=== PATIENT | female | born 1930 | race Caucasian/White ===

== ENCOUNTER 2017-08-28 16:57 | Emergency (ER) | payer MEDICARE, MEDICAID ==
[~2017-08-28] VITALS: Wt 61.2 kg
[~2017-08-28 16:57] MED LIST: AMOXICILLIN500 M2 PO; CALCIUM + VITA1 EAC2 PO; LISINOPRIL-HYDR1 TA1 PO; LUMIGAN50 DRP OPH
[2017-08-28 19:51] LABS: BILIRUBIN NEGATIVE (NEGATIVE); BLOOD NEGATIVE (NEGATIVE); CLARITY SL CLOUDY (CLEAR); COLOR YELLOW (YELLOW); GLUCOSE NEGATIVE (NEGATIVE); KETONE NEGATIVE (NEGATIVE); LEUKO ESTERASE 2+ (NEGATIVE); NITRITE NEGATIVE (NEGATIVE); PH 5.5 (5.0-9.0); UROBILINOGEN 0.2 E.U./dl (0.2-1.0)
[2017-08-28 19:53] LABS: BASO % 0.2 % (0.0-1.0); EOS % 0.1 % (1.0-4.0); HEMOGLOBIN 14.6 g/dl (12.0-16.0); LYMPH # 1.4 10*3/uL (1.3-4.4); LYMPH % 7.1 % (27.0-41.0); MEAN CELL VOLUME 92.3 fl (81.0-99.0); MEAN CORPUSCULAR HGB 31.3 pg (27.0-31.0); MEAN PLATELET VOLUME 9.9 fl (9.6-12.3); MONO # 0.8 10*3/uL (0.1-1.0); MONO % 3.8 % (3.0-9.0); NEUT # 17.5 10*3/uL (2.3-7.9); NEUT % 88.1 % (47.0-73.0); PLATELET COUNT AUTOMATED 244 10*3/uL (130-400); RED BLOOD COUNT 4.66 10*6/uL (4.10-5.10); RED CELL DISTRI WIDTH 12.7 % (0-14.5); WHITE BLOOD COUNT 19.9 10*3/uL (4.8-10.8)
[2017-08-28 19:55] VITALS: BP 146/71
[2017-08-28 19:59] LABS: BACTERIA 2+
[2017-08-28 20:00] LABS: WBC 41-50 wbc/hpf (0-5)
[2017-08-28 20:02] LABS: ACT PARTIAL THROMBO TIME 25.5 SECONDS (20.8-31.5); INTERNATIONAL NORM RATIO 0.9 (2.0-3.5)
[2017-08-28 20:09] LABS: ALBUMIN 4.1 gm/dl (3.1-4.5); ALKALINE PHOSPHATASE 59 U/L (45-117); BUN 21 mg/dl (7-24); CHLORIDE 102 mmol/L (98-107); CREATININE 0.97 mg/dL (0.55-1.02); POTASSIUM 3.3 mmol/L (3.5-5.1); SGOT/AST 21 IU/L (3-35); SGPT/ALT 22 U/L (12-78); SODIUM 137 mmol/L (136-145); TOTAL PROTEIN 7.3 gm/dL (6.4-8.2)
[2017-08-28 20:10] LABS: TROPONIN I < 0.015 ng/ml (<0.045)
== END 2017-08-28 20:25 | disposition short-term general hospital (02) ==
LOC: ED 16:57
PROVIDERS: Nurse Practitioner Family
DX: S06.6X0A Traumatic subarachnoid hemorrhage without loss of consciousness, initial encounter (principal); S72.092A Other fracture of head and neck of left femur, initial encounter for closed fracture; R94.31 Abnormal electrocardiogram [ECG] [EKG]; Z98.42 Cataract extraction status, left eye; Z98.41 Cataract extraction status, right eye; Z79.899 Other long term (current) drug therapy; W10.8XXA Fall (on) (from) other stairs and steps, initial encounter; Y93.89 Activity, other specified; Y92.009 Unspecified place in unspecified non-institutional (private) residence as the place of occurrence of the external cause; Y99.9 Unspecified external cause status

== ENCOUNTER 2018-07-06 18:06 | Inpatient (IN) | payer MEDICARE, MEDICAID ==
[~2018-07-06] VITALS: Ht 162.5 cm; Wt 61.9 kg
--- NOTE | ~2018-07-06 | EKG ---
[place], [place] ELECTROCARDIOGRAM REPORT NAME: PRABHJOT ZHANG UNIT #: [id number] ROOM: 407 DOCTOR: SEFERINO DRAFT REPORT BIRTHDATE: [birth year] [facility] Test Date: 2018-07-07 Test Time: 14:41:04 Pat Name: PRABHJOT ZHANG Department: Room: 407 1 Gender: F Assistant Professor Of Chemistry: : 1930 Requested By: JORDI WOODRUFF Order Number: [id number] Reading MD: Rojelio Guillen MD Measurements Intervals [place] Rate: 72 P: 49 PA: 127 QRS: 29 QRSD: 89 T: 106 QT: 425 QTc: 466 Interpretive Statements Sinus rhythm Nonspecific repol abnormality, diffuse leads Baseline wander in lead(s) V1 No previous ECG available for comparison Electronically Signed On 07-07-2018 17:48:38 PST by Rojelio Guillen MD CM:EKGRPT:ELECTROCARDIOGRAM REPORT [id number] JORDI GENTILE DRAFT REPORT JORDI WOODRUFF
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
[2018-07-06 18:11] VITALS: BP 166/64
[2018-07-06 20:00] VITALS: BP 158/91
--- NOTE | 2018-07-06 20:15 | NUR ---
PATIENT USED BEDPAN AT THIS TIME. REPOSITIONED PATIENT IN BED. FAMILY AT THE BEDSIDE. UA SENT. NO DISTRESS NOTED. RESPIRATIONS EASY, NON-LABORED ON ROOM AIR. CALL LIGHT WITHIN REACH. KRISHNA X2. RN WILL CONTINUE TO MONITOR.
[2018-07-06 20:31] LABS: BILIRUBIN NEGATIVE (NEGATIVE); BLOOD TRACE-LYSED (NEGATIVE); CLARITY SL CLOUDY (CLEAR); COLOR YELLOW (YELLOW); GLUCOSE NEGATIVE (NEGATIVE); KETONE NEGATIVE (NEGATIVE); LEUKO ESTERASE 2+ (NEGATIVE); NITRITE NEGATIVE (NEGATIVE); SPECIFIC GRAVITY <= 1.005 (1.005-1.030); UROBILINOGEN 0.2 E.U./dl (0.2-1.0)
[2018-07-06 20:46] LABS: BACTERIA 1+; EPITHELIAL CELLS TNTC
[2018-07-06 21:17] LABS: BASO % 0.2 % (0.0-1.0); EOS % 0.2 % (1.0-4.0); HEMATOCRIT 42.6 % (37.0-47.0); HEMOGLOBIN 14.7 g/dl (12.0-16.0); LYMPH # 1.6 10*3/uL (1.3-4.4); MEAN CELL VOLUME 93.6 fl (81.0-99.0); MEAN CORPUSCULAR HGB 32.3 pg (27.0-31.0); MEAN CORPUSCULAR HGB CONC 34.5 g/dl (33.0-37.0); MONO # 0.8 10*3/uL (0.1-1.0); MONO % 4.9 % (3.0-9.0); NEUT # 13.6 10*3/uL (2.3-7.9); PLATELET COUNT AUTOMATED 258 10*3/uL (130-400); RED BLOOD COUNT 4.55 10*6/uL (4.10-5.10); WHITE BLOOD COUNT 16.2 10*3/uL (4.8-10.8)
[2018-07-06 21:32] LABS: ALKALINE PHOSPHATASE 57 U/L (45-117); BUN 24 mg/dl (7-24); CHLORIDE 106 mmol/L (98-107); CREATININE 1.09 mg/dL (0.55-1.02); LIPASE 132 U/L (73-393); POTASSIUM 3.6 mmol/L (3.5-5.1); SGOT/AST 17 IU/L (3-35); SGPT/ALT 19 U/L (12-78); SODIUM 141 mmol/L (136-145); TOTAL PROTEIN 6.6 gm/dL (6.4-8.2)
[2018-07-06 21:39] LABS: ACT PARTIAL THROMBO TIME 26.1 SECONDS (20.8-31.5)
[2018-07-06 22:00] VITALS: BP 170/85
--- NOTE | 2018-07-06 22:00 | NUR ---
PATIENT USED BEDPAN AT THIS TIME. REPOSITIONED PATIENT FOR COMFORT. RESPIRATIONS EASY, NON-LABORED ON ROOM AIR. DNEIES ANY PAIN EXCEPT FOR WHEN WE MOVE HER TO PUT HER ON THE BEDPAN. RN WILL CONTINUE TO MONITOR.
[2018-07-06 22:30] VITALS: BP 135/64
[2018-07-07] VITALS (10 sets, daily range): BP systolic 105–145; BP diastolic 58–90
--- NOTE | 2018-07-07 00:15 | NUR ---
Time: 14 A 87 year old FEMALE admitted to 4E under services of BJ RON DO. Pt. arrived via ambulance from ER. Chief complaint: FALL. ANAMARIA SPIVEY
--- NOTE | 2018-07-07 04:54 | NUR ---
PT ADMINISTERED PRN NORCO. WILL CONTINUE TO MONITOR.
--- NOTE | 2018-07-07 05:00 | NUR ---
Dr. ALEXANDER consulted for RIGHT FEMUR NECK CLOSED FX. ANAMARIA SPIVEY
[2018-07-07 05:56] LABS: BASO % 0.4 % (0.0-1.0); EOS # 0.2 10*3/uL (0.0-0.4); EOS % 1.9 % (1.0-4.0); HEMATOCRIT 39.4 % (37.0-47.0); HEMOGLOBIN 13.3 g/dl (12.0-16.0); LYMPH # 1.6 10*3/uL (1.3-4.4); LYMPH % 20.6 % (27.0-41.0); MEAN CELL VOLUME 95.2 fl (81.0-99.0); MEAN CORPUSCULAR HGB 32.1 pg (27.0-31.0); MEAN CORPUSCULAR HGB CONC 33.8 g/dl (33.0-37.0); MONO # 0.6 10*3/uL (0.1-1.0); MONO % 7.9 % (3.0-9.0); NEUT # 5.5 10*3/uL (2.3-7.9); NEUT % 68.7 % (47.0-73.0); PLATELET COUNT AUTOMATED 227 10*3/uL (130-400); RED BLOOD COUNT 4.14 10*6/uL (4.10-5.10)
--- NOTE | 2018-07-07 06:00 | NUR ---
PT STATES THAT PRN NORCO WAS EFFECTIVE. BED LOW, CALL LIGHT WITHIN REACH.
--- NOTE | 2018-07-07 06:08 | NUR ---
PT LEAVING FLOOR AT THIS TIME TO GO TO RADIOLOGY FOR LUNG SCAN.
[2018-07-07 06:14] LABS: ALBUMIN 3.4 gm/dl (3.1-4.5); ALKALINE PHOSPHATASE 45 U/L (45-117); BUN 20 mg/dl (7-24); CHLORIDE 107 mmol/L (98-107); CHOLESTEROL 183 mg/dL (<200); CREATININE 0.95 mg/dL (0.55-1.02); FREE T4 0.91 ng/dl (0.76-1.46); HDL CHOLESTEROL 55 mg/dl (40-60); LDL CHOLESTEROL 112 mg/dL (9-159); PHOSPHOROUS 3.3 mg/dL (2.5-4.9); POTASSIUM 3.5 mmol/L (3.5-5.1); SGOT/AST 15 IU/L (3-35); SGPT/ALT 17 U/L (12-78); SODIUM 143 mmol/L (136-145); TOTAL PROTEIN 5.9 gm/dL (6.4-8.2); TRIGLYCERIDES 79 mg/dl (<150); VLDL CHOLESTEROL 16 mg/dL (6-40)
--- NOTE | 2018-07-07 07:00 | NUR ---
THIS NURSE AND LULÚ BOYER RN TRANSPORTED PT BACK TO FLOOR AT THIS TIME.
--- NOTE | 2018-07-07 09:00 | NUR ---
Lawn And Garden Technician in to talk to patient. Patient states lives at home with alone. There are few steps in the home. Physician: michi Pharmacy: [facility] services: none Patient's level of ADLs: INDEPENDENT Patient has working utilities: all working DME: none Follow-up physician's appointment after d/c: will be made by hospitalist nurse director upon discharge Does patient want to access PORTAL?: no Discharge plan discussed with patient, patient lives at home, states she was independent in adls and ambulation prior to falling, discussed with her a short term prison for rehab prior to going back home, patient was inagreement with this, given choice of area facilities, patient chose [facility] as first choice and [facility] as second choice, senior materials planner will make referral to both facilities for when patient is medically stable for discharge. YIN FINE
--- NOTE | 2018-07-07 11:42 | NUR ---
PATIENT C/O RIGHT HIP PAIN, MEDICATED WITH PRN IV DILAUDID PER ORDERS. WILL MONITOR PATIENT FOR MEDICATION EFFECTIVENESS. BED IN LOWEST/LOCKED POSITION, SIDERAILS UP X2 FOR SAFETY, CALL LIGHT WITHIN REACH. DAUGHTER AT BEDSIDE WTIH PATIENT AT THIS TIME.
--- NOTE | 2018-07-07 12:38 | NUR ---
NOTIFIED DR ALEXANDER'S OFFICE AT THIS TIME TO MAKE AWARE THAT PATIENT WAS CLEARED FOR SURGERY PER DR MILLER/DR JURADO.
--- NOTE | 2018-07-07 14:09 | NUR ---
Patient requested referral to 1. [facility] and 2. [facility]. Contacted facility and faxed referral to [facility]. Andrew stated they do have open beds at [facility] for female, but no openings for Rehab suites. Initial referral was faxed, will fax physical therapy eval after patient has surgery and is appropriate to participate.
--- NOTE | 2018-07-07 15:25 | NUR ---
PATIENT TO OR FOR ORIF RT HIP BY BED AT THIS TIME, FAMILY ACCOMPANYING.
--- NOTE | 2018-07-07 19:34 | NUR ---
patient returned from surgery at this time.
--- NOTE | 2018-07-07 20:02 | NUR ---
SCDS AND HEEL PROTECTORS PLACED ON PATIENT AT THIS TIME
--- NOTE | 2018-07-07 21:57 | NUR ---
PATIENT MEDICATED WITH PRN NORCO ORDERD FOR C/O RIGHT HIP PAIN WITH MOVEMENT RATED A 8/10
--- NOTE | 2018-07-07 23:00 | NUR ---
PATIENT STATES EARLIER NORCO WAS EFFECTIVE FOR RIGHT HIP PAIN.
[2018-07-08] VITALS: BP 144/70
--- NOTE | 2018-07-08 01:30 | NUR ---
PATIENT MEDICATED WITH PRN NORCO ORDERD FOR C/O RIGHT HIP PAIN RATED 6/10, WORSE WITH MOVEMENT.
--- NOTE | 2018-07-08 02:30 | NUR ---
EARLIER NORCO EFFECTIVE PER PATIENT.
[2018-07-08 05:59] LABS: BASO % 0.3 % (0.0-1.0); EOS # 0.4 10*3/uL (0.0-0.4); EOS % 3.9 % (1.0-4.0); HEMATOCRIT 36.9 % (37.0-47.0); HEMOGLOBIN 12.2 g/dl (12.0-16.0); LYMPH # 2.1 10*3/uL (1.3-4.4); LYMPH % 22.3 % (27.0-41.0); MEAN CELL VOLUME 96.3 fl (81.0-99.0); MEAN CORPUSCULAR HGB 31.9 pg (27.0-31.0); MEAN CORPUSCULAR HGB CONC 33.1 g/dl (33.0-37.0); MEAN PLATELET VOLUME 10.3 fl (9.6-12.3); MONO # 0.8 10*3/uL (0.1-1.0); MONO % 8.1 % (3.0-9.0); NEUT % 65.1 % (47.0-73.0); PLATELET COUNT AUTOMATED 198 10*3/uL (130-400); RED BLOOD COUNT 3.83 10*6/uL (4.10-5.10); RED CELL DISTRI WIDTH 13.1 % (0-14.5); WHITE BLOOD COUNT 9.2 10*3/uL (4.8-10.8)
[2018-07-08 08:00] VITALS: BP 110/64
--- NOTE | 2018-07-08 09:00 | NUR ---
patient will be going to a short term senior care when medically stable, urban planner working on this
--- NOTE | 2018-07-08 10:15 | NUR ---
MEDICATED WITH NORCO ORDERED FOR COMPLAINTS OF RIGHT HIP PAIN. RATES PAIN A 8 ON A PAIN SCALE OF 1-10
--- NOTE | 2018-07-08 11:00 | NUR ---
VOICES THAT VICODIN WAS EFFECTIVE FOR PAIN
--- NOTE | 2018-07-08 11:58 | NUR ---
Occupational Therapy evaluation completed on 4 with full eval to follow. Precautions include fall risk; bed alarm, TTWB RLE, park catheter, IV UE. Patient is high complexity level 53356 via chart review, testing and evaluation. Recommend OT per POC and SNF to enable safe return home at [facility]. Thank you for this referral. Fabi Armas OTR/l
[2018-07-08 12:00] VITALS: BP 117/56
--- NOTE | 2018-07-08 14:48 | NUR ---
MEDICATED WITH NORCO FOR COMPLAINTS OF PAIN IN RIGHT LEG. REMAINS IN CHAIR. RATES PAIN A 8 ON A PAIN SCLAE OF 1-10
--- NOTE | 2018-07-08 15:05 | NUR ---
Physical therapy evaluation completed on 4. Pt ID by name and . Pt is TTWB RLE. Full PT eval to follow. Recommend pt to SNF for safety with progression of functional mobility. Moderate complexity PT evaluation completed. thank you for this referral, Rocio Jacobo, PT
--- NOTE | 2018-07-08 15:10 | NUR ---
PHYSICAL THERAPY Patient presented to therapy in sitting position with chair alarm attached and LEs elevated with report of no pain , except when she moves. Patient agrees to therapy session. Patient was identified by name and . Patient is TTWB on R LE. Patient transferred STS with MOD A X 1 from bedside chair with verbal cues for scooting forwards in chair and pushing off armrests of chair with hands. Patient stood at W/W for 1 minute maintaining TTWB on the R LE and CGA X 1. Patient then ambulated forwards 5' x 1 with CGA X 1 , with rolling chair then pulled up behind her where she sat with MIN A X 1. Patient STS again from bedside chair with MIN A X 1. Patient stood at W/W with CGA X 1 for 1 minutes for the 2 nd time with verbal cues for maintaining TTWB.
--- NOTE | 2018-07-08 15:16 | NUR ---
ASSUMED CARE OF PATIENT AT THIS TIME. PATIENT RESTING WHILE SITTING UP IN CHAIR. RESPIRATIONS EASY. NO S/S OF DISTRESS NOTED. WILL CONTINUE TO MONITOR. CALL LIGHT LEFT IN REACH.
--- NOTE | 2018-07-08 15:56 | NUR ---
PATIENT ASSISTED OUT OF CHAIR BACK INTO BED BY DIRECTOR DIGITAL ADVERTISING USING WALKER AND TOUCH TOE TECHNIQUE. PATIENT TOLERATED WELL. SCDs AND HEEL PROTECTORS REAPPLIED AT THIS TIME. PATIENT C/O FEELING LIKE NINA LEAKING. NINA IS STILL DRAINING CLEAR/PALE YELLOW URINE. RN INSPECTED NINA AND TUBING SYSTEM. NO OBVIOUS LEAKS NOTED. WILL CONTINUE TO MONITOR. CALL LIGHT LEFT IN REACH.
[2018-07-08 16:00] VITALS: BP 103/56
[2018-07-08 20:00] VITALS: BP 109/74
--- NOTE | 2018-07-08 20:21 | NUR ---
PATIENT DENIES ANY NEED FOR PAIN MEDICATION AT THIS TIME. FAMILY AT BEDSIDE. WILL MONITOR. CALL LIGHT IN REACH.
--- NOTE | 2018-07-08 23:51 | NUR ---
ASSUME CARE OF PATIENT. MEDICATED WITH PRN NORCO ORDERED FOR C/O RIGHT HIP PAIN WITH MOVEMENT RATED 8/10. RIGHT HIP DRESSING DRY/INTACT. NINA PATENT CLEAR YELLOW URINE. PATIENT IS PLEASANT/COOPERATIVE WITH CARE. STATES SHE CAN NOT SLEEP WITH THE SCDS AND HEEL BOOTS ON HER LEGS. SCDS REMOVED, AND HEELS PROPPED UP ON BLANKET PER PATIENT REQUEST. NO FURTHER COMPLAINTS. CALL LIGHT IN REACH. WILL MONITOR.
[2018-07-09] VITALS: BP 101/68
--- NOTE | 2018-07-09 02:34 | NUR ---
PATIENT SLEEPING. NO S/S OF DISTRESS NOTED. RESPIRATIONS EASY/REG ON RA. BED IN LOW POSITION, WHEELS LOCKED, CALL LIGHT IN REACH.
--- NOTE | 2018-07-09 06:57 | NUR ---
PATIENT MEDICATED WITH PRN NORCO ORDERD FOR C/O HIP PAIN RATED 10/10
[2018-07-09 07:00] LABS: BASO % 0.4 % (0.0-1.0); EOS # 0.6 10*3/uL (0.0-0.4); EOS % 6.8 % (1.0-4.0); HEMATOCRIT 37.3 % (37.0-47.0); HEMOGLOBIN 12.5 g/dl (12.0-16.0); LYMPH # 2.3 10*3/uL (1.3-4.4); LYMPH % 25.6 % (27.0-41.0); MEAN CELL VOLUME 95.2 fl (81.0-99.0); MEAN CORPUSCULAR HGB 31.9 pg (27.0-31.0); MEAN CORPUSCULAR HGB CONC 33.5 g/dl (33.0-37.0); MEAN PLATELET VOLUME 10.6 fl (9.6-12.3); MONO # 0.7 10*3/uL (0.1-1.0); MONO % 7.9 % (3.0-9.0); NEUT # 5.3 10*3/uL (2.3-7.9); PLATELET COUNT AUTOMATED 201 10*3/uL (130-400); RED BLOOD COUNT 3.92 10*6/uL (4.10-5.10); RED CELL DISTRI WIDTH 13.1 % (0-14.5); WHITE BLOOD COUNT 9.1 10*3/uL (4.8-10.8)
--- NOTE | 2018-07-09 07:55 | NUR ---
Patient accepted to [facility], 3 night stay complete, hospital exemption complete. Patient is ok to go when medically stable for discharge. [facility] notified of possible D/C today if cleared by ortho
[2018-07-09 08:00] VITALS: BP 113/52
--- NOTE | 2018-07-09 08:50 | NUR ---
OT NOTE Pt was seen this A.M. 1:1 for 25 minute OT session. Upon arrival pt was supine in bed, pt identified by name and . Pt had reports of 10/10 R hip pain with activity. Pt transferred supine to sit EOB with modA for assist with both RLE and UB. Pt then completed sit to stand transfer from bed level with Yadira X 2, followed by functional mobility to the recliner with CGA and use of w/w for UE support. Pt required verbal instructions throughout for proper weight bearing status of TTWB. While sitting in recliner provided pt with verbal and visual demonstration/education on use of LB adaptive equipment including: long handle sponge, sock aid, and sales associate cashier due to pt not being able to reach forward due to pain. Pt doffed socks using the sock aid with modA due to not being able to grasp sock. Pt then donned socks using the sock aid with Yadira. Pt's breakfast tray arrived so session was ended at this point, pt was left sitting upright in recliner with call light in hand, tray table in place, and body alarm on for safety. Continue with rec D/C plan to SNF. MARTINA Pearson/Fernando
--- NOTE | 2018-07-09 09:37 | NUR ---
PHYSICAL THERAPY Patient presented to therapy in supine with report of 10/10 pain in R hip with activity. Patient has no other complaints. Patient agrees to therapy session. Patient was identified by name and . Patient has no pain with resting. Patient performed supine to sitting at EOB transfer with MOD A X 1. Patient transferred STS with MIN A X 2 from EOB. Patient ambulated 10' x 1 with W/W to chair across room from patient with CGA X 2 with patient maintaining her R TTWB status the entire distance. Patient sat in bedside chair and performed bilateral LE ther ex 2 x 10 reps LAQs, heel/toe raises, and L hip marches. No other therapy performed at this time. Patient did not appear to be in 10/10 pain with gait or transfers , even though she said her pain level was 10/10. Patient was left in bedside chair with tray table and breakfast in front of patient, call light within reach, and chair alarm activated. Patient was 1:1 with this SALES AND MARKETING ASSISTANT for 20 minutes total. Patient is recommended for SNF UPON DISCHARGE. KINGA SORIANO SALES AND MARKETING ASSISTANT
--- NOTE | 2018-07-09 11:45 | NUR ---
DR ALEXANDER WAS IN TO DO DRESSING CHANGE.
[2018-07-09 12:00] VITALS: BP 136/60
--- NOTE | 2018-07-09 12:16 | NUR ---
NORCO 5/325 GIVEN PER PATIENT REQUEST FOR RIGHT HIP PAIN RATING A 10/10 ON PAINSCALE.
[2018-07-09] MEDS ORDERED: NORCO 5-325 TA1 EACH PO (12:43)
[2018-07-09] MEDS ORDERED: ASPIRIN325 M2 PO (12:43)
[2018-07-09] MEDS ORDERED: VITAMIN D5000 UNI1 PO (12:43)
--- NOTE | 2018-07-09 13:21 | NUR ---
Patient is being discharged to the [facility], transportation scheduled for 3 pm with [place]. [place] and mail forwarding system markup clerk notified.
--- NOTE | 2018-07-09 14:21 | NUR ---
PHYSICAL THERAPY Patient presented to therapy in supine with report of decreasing pain in the R hip. Patient agrees to therapy session. Patient was identified by name and . Patient performed supine to sitting at EOB transfer with MIN A X 1 with verbal cues for proper technique with overhead trapeze. Patient transferred STS with MIN A X 2 with verbal cues for pushing off bed handrail with L hand and off of bed with R hand. Patient ambulated with W/W and TTWB on R LE for 25' x 1 with rolling chair follow by other therapist. Patient required CGA X 1 with ambulation. Patient transferred to bedside chair with MIN A X 1 with verbal cues for putting hands back on armrests and kicking R LE out in front of her. Patient was left in sitting position with call light within reach and tray table near patient. Patient was 1:1 with this INFANTRY WEAPONS CREWMEMBER for 21 minutes total. Patient is recommended to SNF upon discharge. SANJU SORIANO INFANTRY WEAPONS CREWMEMBER
--- NOTE | 2018-07-09 14:38 | NUR ---
OT NOTE PATIENT SEEN 1:1 OT THIS DATE. PATIENT IDENTIFIED BY NAME AND DATE OF . PATIENT SEEN 1:1 OT 20 MINUTES THIS PM. COMPLETED SUPINE TO SIT EOB MIN A WITH USE RAIL AND TRAPEZE BAR INCREASE TIME AND VERBAL CUES TECHNIQUE AND FORM. PATIENT COMPLETED LB DRESSING AND AE EDUCATION DOFF/BLANE SOCKS MIN A AND VERBAL CUES TECHNIQUE. PATIENT PROVIDED WITH PIN DRAFTER OPERATOR, SOCK AIDE, AND LONF HANDLED SPONGE. PATIENT DEMONSTRATED GOOD FOLLOW THROUGH RLE TTWE THIS DATE. PATIENT SEATED IN RECLINER END OF SESSION THIS DATE WITH CHAIR ALARM INTACT AND CALL LIGHT WITHIN REACH. AYAAN CHAVEZ
--- NOTE | 2018-07-09 15:20 | NUR ---
Discharge instructions reviewed with patient/family. Patient receptive and verbalizes understanding. Follow-up care arranged. Written instructions given to patient/family. ES JOHNSON
--- NOTE | 2018-07-09 15:52 | NUR ---
PHYSICAL THERAPY CO-SIGN I approve of the Phyical Therapy notes written above. VINCENT MESSER PT
--- NOTE | 2018-07-12 17:01 | NUR ---
OCCUPATIONAL THERAPY CO-SIGN I approve of the Occupational Therapy notes written above. JOY BOWER OTR/Fernando
== END 2018-07-09 15:20 | disposition other institution (70) | DRG 480 ==
LOC: ED 18:06 → 4E 21:34 → EDHOLD 21:34 → EDBEDREQ 23:45 → 4E 23:52
PROVIDERS: Family Medicine; Nurse Practitioner Family; Orthopaedic Surgery; ADMIT Internal Medicine
PROC: 0QH604Z Insertion of Internal Fixation Device into Right Upper Femur, Open Approach (ICD-10-PCS; principal; 2018-07-07)
DX: S72.001A Fracture of unspecified part of neck of right femur, initial encounter for closed fracture (principal); N17.0 Acute kidney failure with tubular necrosis; R65.10 Systemic inflammatory response syndrome (SIRS) of non-infectious origin without acute organ dysfunction; E83.41 Hypermagnesemia; I10 Essential (primary) hypertension; H40.9 Unspecified glaucoma; M25.552 Pain in left hip; E55.9 Vitamin D deficiency, unspecified; R31.21 Asymptomatic microscopic hematuria; R31.9 Hematuria, unspecified; W18.39XA Other fall on same level, initial encounter; Y93.89 Activity, other specified; Y92.89 Other specified places as the place of occurrence of the external cause; Z83.3 Family history of diabetes mellitus; Z82.49 Family history of ischemic heart disease and other diseases of the circulatory system; Y99.8 Other external cause status

== ENCOUNTER → 2018-08-11 | Outpatient (CLI) | payer MEDICARE, MEDICAID ==
[~2018-08-11] MED LIST changes: +ASPIRIN325 M2 PO; +NORCO 5-325 TA1 EACH PO; +TOPROL XL50 M1 PO; +VITAMIN D5000 UNI1 PO
[2018-08-11 10:34] LABS: BASO % 0.5 % (0.0-1.0); EOS # 0.1 10*3/uL (0.0-0.4); HEMATOCRIT 43.3 % (37.0-47.0); HEMOGLOBIN 14.7 g/dl (12.0-16.0); LYMPH # 1.8 10*3/uL (1.3-4.4); LYMPH % 21.8 % (27.0-41.0); MEAN CELL VOLUME 97.1 fl (81.0-99.0); MEAN CORPUSCULAR HGB CONC 33.9 g/dl (33.0-37.0); MEAN PLATELET VOLUME 10.1 fl (9.6-12.3); MONO # 0.5 10*3/uL (0.1-1.0); MONO % 5.6 % (3.0-9.0); NEUT # 5.7 10*3/uL (2.3-7.9); NEUT % 70.6 % (47.0-73.0); PLATELET COUNT AUTOMATED 272 10*3/uL (130-400); RED BLOOD COUNT 4.46 10*6/uL (4.10-5.10); RED CELL DISTRI WIDTH 13.3 % (0-14.5)
[2018-08-11 10:58] LABS: BUN 13 mg/dl (7-24); CHLORIDE 103 mmol/L (98-107); CREATININE 0.92 mg/dL (0.55-1.02); POTASSIUM 3.7 mmol/L (3.5-5.1); SODIUM 141 mmol/L (136-145)
== END | disposition home or self-care (01) ==
LOC: LAB 01:45 → ORTHO 01:45
PROVIDERS: Orthopaedic Surgery
DX: S72.011D Unspecified intracapsular fracture of right femur, subsequent encounter for closed fracture with routine healing (principal); E87.6 Hypokalemia; D64.9 Anemia, unspecified; X58.XXXD Exposure to other specified factors, subsequent encounter

== ENCOUNTER → 2018-09-13 | Outpatient (CLI) | payer MEDICARE, MEDICAID | END | disposition home or self-care (01) | LOC: ORTHO 00:45 | DX: S72.001D Fracture of unspecified part of neck of right femur, subsequent encounter for closed fracture with routine healing (principal); X58.XXXD Exposure to other specified factors, subsequent encounter; Z91.81 History of falling ==

== ENCOUNTER → 2018-12-15 | Outpatient (CLI) | payer MEDICARE, MEDICAID | END | disposition home or self-care (01) | LOC: ORTHO 00:50 | DX: S72.001D Fracture of unspecified part of neck of right femur, subsequent encounter for closed fracture with routine healing (principal); X58.XXXD Exposure to other specified factors, subsequent encounter ==

== ENCOUNTER → 2018-12-16 | Outpatient (CLI) | payer MEDICARE, MEDICAID ==
--- NOTE | ~2018-12-16 | EKG ---
[place], [place] ELECTROCARDIOGRAM REPORT NAME: PRABHJOT ZHANG UNIT #: [id number] ROOM: DOCTOR: MAURILIOANY DRAFT REPORT BIRTHDATE: [birth year] [facility] Test Date: 2018-12-16 Test Time: 12:56:09 Pat Name: PRABHJOT ZHANG Department: Room: Gender: F Director Of Trauma: KJ : 1930 Requested By: TANA PICKERING Order Number: [id number] Reading MD: Venita Beal Measurements Intervals [place] Rate: 114 P: MO: QRS: 27 QRSD: 84 T: 161 QT: 290 QTc: 400 Interpretive Statements Atrial fibrillation with RVR Nonspecific repol abnormality, diffuse leads Compared to ECG 07/07/2018 14:41:04 Sinus rhythm no longer present Electronically Signed On 12-17-2018 8:32:18 PDT by Venita Beal CM:EKGRPT:ELECTROCARDIOGRAM REPORT [id number] TANA GENTILE DRAFT REPORT TANA PICKERING MD
== END | disposition home or self-care (01) ==
LOC: CARD 12:41
DX: I49.9 Cardiac arrhythmia, unspecified (principal); R00.0 Tachycardia, unspecified; I48.91 Unspecified atrial fibrillation

== ENCOUNTER → 2019-01-04 | Outpatient (CLI) | payer MEDICARE, MEDICAID ==
--- NOTE | ~2019-01-04 | ST ---
[place], [place] EXERCISE STRESS TEST REPORT NAME: [facility]HANG [id number] UNIT #: [id number] ROOM: DOCTOR: CRICKET GRAHAM MD BIRTHDATE: [birth year] DOS: 01/04/2019 LEXISCAN PORTION OF THE LEXISCAN CARDIOLITE Baseline cardiogram, atrial fibrillation, controlled ventricular response, 0.4 mg Lexiscan, duration of 10 seconds. With Lexiscan, the patient had some isolated PVCs. No chest discomfort, slightly rapid ventricular response. Blood pressure and heart rate as mentioned. FINAL IMPRESSION: Indeterminate test secondary to the underlying atrial fibrillation. No chest discomfort, no dysrhythmia other than underlying atrial fibrillation. Isolated PVCs with Lexiscan. No other EKG changes other than atrial fibrillation. Nuclear images will be reported separately. CRICKET GRAHAM MD CM:STRESS:EXERCISE STRESS TEST REPORT [id number] CRICKET GRAHAM MD
--- NOTE | 2019-01-04 07:25 | NUR ---
INFORMED CONSENT OBTAINED FOR LEXISCAN NUCLEAR STRESS TEST WITH DR. GRAHAM. RESTING EKG ATRIAL FIB WITH A RESTING HR OF 108 WITH BP OF 148/80. LUNGS CLEAR WITH SPO2 OF 97% ON ROOM AIR. PT COMPLETED A 1:00 LEXISCAN PROTOCOL RECEIVING LEXISCAN 0.4 MG IV OVER 10 SECONDS. HAD NO CHEST PAIN OR ANY EKG CHANGES. HAD A PEAK HR OF 137 WITH BP OF 152/80. LAST RECOVERY HR OF 111 WITH BP OF 150/82. AWAITING SCANNING IN STABLE CONDITION.
== END | disposition home or self-care (01) ==
LOC: CARD 00:19
DX: I48.91 Unspecified atrial fibrillation (principal); R94.31 Abnormal electrocardiogram [ECG] [EKG]

== ENCOUNTER → 2019-08-09 | Outpatient (CLI) | payer MEDICARE, MEDICAID ==
[2019-08-09 10:01] LABS: HEMATOCRIT 46.1 % (37.0-47.0); HEMOGLOBIN 15.2 g/dl (12.0-16.0); MEAN CELL VOLUME 96.2 fl (81.0-99.0); MEAN CORPUSCULAR HGB 31.7 pg (27.0-31.0); MEAN PLATELET VOLUME 10.3 fl (9.6-12.3); RED BLOOD COUNT 4.79 10*6/uL (4.10-5.10); RED CELL DISTRI WIDTH 13.1 % (0-14.5); WHITE BLOOD COUNT 8.6 10*3/uL (4.8-10.8)
[2019-08-09 10:28] LABS: CREATININE 1.28 mg/dL (0.55-1.02); POTASSIUM 3.3 mmol/L (3.5-5.1)
== END ==
LOC: LAB 09:17
PROVIDERS: Family Medicine
DX: I10 Essential (primary) hypertension (principal); I48.91 Unspecified atrial fibrillation; M19.90 Unspecified osteoarthritis, unspecified site